=== PATIENT | male | born 1995 | race Caucasian/White ===

== ENCOUNTER 2021-07-22 22:34 | Emergency (ER) | payer OTHER, SELFPAY ==
[2021-07-22 22:45] VITALS: BP 137/86; PULSE 85; RESP 16; TEMP 36.4; O2SAT 96; BMI 34.7
--- NOTE | 2021-07-22 23:24 | ED.BACK ---
HPI - Back Pain/Injury General Chief Complaint: Back Pain/Injury Stated Complaint: SHARP MIDDLE OF BACK PAIN WHEN EATING SEVERE PAIN Time Seen by Provider: 07/22/21 22:58 Source: patient Mode of arrival: Ambulatory Limitations: no limitations History of Present Illness HPI Narrative: Patient is a otherwise healthy 25-year-old male. Over the past 4 days he has had mid back discomfort. He states that during this time he has had a slight discomfort in this area however when he eats something the discomfort worsens. He was evaluated at an outside emergency facility. Was told that it was a muscular issue. Was given symptomatic treatment with medications. Has been taking these medicines and it has not changed. He states that it gets worse every time that he eats. It then improves over the next several minutes to our. Denies any nausea or vomiting. No diarrhea. No constipation. No urinary symptoms. No trauma. No skin rash over the area. No fevers. Over the past 24 hours he has not developed upper abdominal discomfort when he eats. When specifically questioned about the symptoms he does feel that maybe there are 2 issues going on in that he has a underlying back issue and then a separate pain in his back and in his abdomen when he eats. Has never had reflux issues in the past. Related Data Previous Rx's Medication Instructions Recorded sucralfate 1 gram tablet (Carafate) 1 g PO QACHS #60 tab 07/23/21 Allergies Allergy/AdvReac Type Severity Reaction Status Date / Time No Known Drug Allergies Allergy Verified 07/22/21 22:55 Review of Systems Constitutional Constitutional: Reports system reviewed and no additional complaints, except as documented Cardiovascular Cardiovascular: Reports as per HPI and Reports system reviewed and no additional complaints, except as documented Respiratory Respiratory: Reports as per HPI and Reports system reviewed and no additional complaints, except as documented Gastrointestinal Gastrointestinal: Reports as per HPI and Reports system reviewed and no additional complaints, except as documented Genitourinary Genitourinary: Reports system reviewed and no additional complaints, except as documented and Reports as per HPI Musculoskeletal Musculoskeletal: Reports system reviewed and no additional complaints, except as documented and Reports as per HPI Integumentary/Breasts Skin/Breast: Reports system reviewed and no additional complaints, except as documented Hematologic/Lymphatic On Anticoagulants: No Patient History Medical History Healthy adult tobacco type: vaping alcohol intake frequency: 0-2 drinks per day Substance Use Type: does not use Exam Initial Vital Signs Initial Vital Signs: Vital Signs Temperature 97.5 F L 07/22/21 22:45 Pulse Rate 85 07/22/21 22:45 Respiratory Rate 16 07/22/21 22:45 Blood Pressure 137/86 07/22/21 22:45 Pulse Oximetry 96 07/22/21 22:45 HENMT Head: normal to inspection and normocephalic Resp Effort & Inspection: normal respiratory effort Auscultation: clear to auscultation bilaterally Cardio Rate: regular rate Rhythm: regular rhythm GI Inspection: normal to inspection Palpation: soft, No firm and No tender Back/Spine/Pelvis Thoracic/Lumbar Spine: paraspinal tenderness (Midthoracic region) and No lumbar spinal tenderness Skin General: no rashes or lesions noted Neuro General: patient alert, patient awake and moves all extremities Extrem General: normal to inspection and capillary refill normal Psych Appearance: grossly normal and well kempt Course Orders Ordered: ED Orders 07/22/21 23:00 Urine Microscopic Stat 07/22/21 23:25 US abdomen limited Stat 07/22/21 23:35 Complete Blood Count AUTO DIFF Stat Comprehensive Metabolic Panel Stat Lipase Stat 07/23/21 00:37 CT angio abdomen pelvis Stat Vital Signs Vital signs: Vital Signs - 8 hr 07/22/21 22:45 07/23/21 01:43 Temperature 97.5 F L Pulse Rate 85 80 Respiratory Rate 16 16 Blood Pressure 137/86 140/84 Pulse Oximetry 96 97 MDM - Back Pain/Injury Lab Data Attestation: I reviewed the patient's lab results. Result diagrams: 07/22/21 23:35 07/22/21 23:35 Labs: Lab Results 07/22/21 07/22/21 07/22/21 Range/Units 23:00 23:35 23:35 WBC 7.8 (4.5-11.0) X10^3/uL RBC 5.18 (4.5-5.9) X10^6/uL Hgb 15.1 (13.5-17.5) g/dL Hct 44.1 (41-53) % MCV 85.2 (80-100) fL MCH 29.1 (26-34) PG MCHC 34.2 (30-36) % RDW 12.0 (11.6-14.8) % Plt Count 317 (150-400) X10^3/uL Neut % (Auto) 53.8 (50-75) % Lymph % (Auto) 29.9 (25-40) % [place] % (Auto) 15.0 H (3-14) % Eos % (Auto) 0.7 L (2-4) % Baso % (Auto) 0.6 (0-2) % Neut # (Auto) 4200 (0420-2750) /uL Lymph # (Auto) 2300 (6415-1229) /uL [place] # (Auto) 1200 H (0-900) /uL Eos # (Auto) 100 (0-450) /uL Baso # (Auto) 0 (0-100) /uL Sodium 137 (137-145) mmol/L Potassium 3.8 (3.4-5.1) mmol/L Chloride 105 (98-107) mmol/L Carbon Dioxide 29 (22-32) mmol/L BUN 14 (9-20) mg/dL Creatinine 1.00 (0.66-1.25) mg/dL Estimated GFR > 60.0 (>60) mL/min BUN/Creatinine Ratio 14.0 (6-22) Glucose 94 (70-100) mg/dL Calcium 9.1 (8.4-10.2) mg/dL Total Bilirubin 0.7 (0.2-1.3) mg/dL AST 29 (17-59) IU/L ALT 40 (<50) IU/L Alkaline Phosphatase 57 (38-126) U/L Total Protein 7.8 (6.3-8.2) g/dL Albumin 4.2 (3.5-5.0) g/dL Globulin 3.6 (1.7-4.1) g/dL Albumin/Globulin Ratio 1.2 (1.0-2.8) Lipase 52 (23-300) U/L Urine RBC 0-1/hpf (0-5/HPF) Urine WBC None seen (0-5/HPF) Urine Bacteria None seen (None) Urine Mucus 1+ H (Negative) Ur Culture Indicated? Cult not indicated Urine Dip Bedside Urine Glucose Negative Bedside Urine Bilirubin - Negative Bedside Urine Ketone - Negative Urine Specific [place] 1.025 Bedside Urine Occult Blood +/- Bedside Urine pH 6.0 Bedside Urine Protein +/- 15 Bedside Urine Urobilinogen - Negative Bedside Urine Nitrite - Negative Bedside Urine Leukocytes - Negative Esterase Imaging Data US - abdomen: Radiologist's Impression: [address] [address] Ultrasound Report Signed Patient: Pedro Williamson MR#: [id number] : 1995 Acct:[id number] Age/Sex: 25 / M Date of Service: 07/22/21 Loc: ED Accession Number: [id number] ?? Procedure: US abdomen limited Ordering Provider: Abdirahman Carcamo D.O. PROCEDURE:? US ABDOMEN LIMITED ? INDICATIONS:? RUQ PAIN ? TECHNIQUE:? Real-time scanning was performed of the abdominal and retroperitoneal organs, with image documentation.? ? COMPARISON:? None. ? FINDINGS:? ? Liver:? Liver is normal in size and homogeneous in echotexture.? ? Gallbladder:? Gallbladder is normal in sonographic appearance without gallstones, gallbladder wall thickening, pericholecystic fluid, or abnormal sonographic Leslie's.? Gallbladder appears slightly decompressed.? ? Biliary ducts:? Intrahepatic bile ducts are non-dilated.? Extrahepatic bile duct caliber measures 3 mm.? Normal is 6-7 mm or less in diameter, or 10 mm or less post-cholecystectomy.? ? Pancreas:? Pancreas is not well visualized secondary to overlying bowel gas. ? Miscellaneous:? No free abdominal fluid.? ? ? IMPRESSION:? No acute sonographic abnormalities identified in the right upper quadrant to explain patient's symptoms. ? ? ? Dictated by: Manoj Valencia M.D. on 07/23/2021 at 0:20 ? ? Approved by: Manoj Valencia M.D. on 07/23/2021 at 0:21?? CT scan - abdomen/pelvis: Radiologist's Impression: [address] [address] [address] Scan Report Signed Patient: Pedro Williamson MR#: [id number] : 1995 Acct:[id number] Age/Sex: 25 / M Date of Service: 07/23/21 Loc: ED Accession Number: [id number] ?? Procedure: CT angio abdomen pelvis Ordering Provider: Abdirahman Carcamo D.O. PROCEDURE:? CT ANGIO ABDOMEN PELVIS ? INDICATIONS:? Epigastric pain with eating ? TECHNIQUE:? After the administration of intravenous contrast, 2.5 mm thick sections acquired from the diaphragm to the symphysis.? 10 mm maximum-intensity projection (MIP) reformats were then acquired.? For radiation dose reduction, the following was used:? automated exposure control.? ? COMPARISON:? None. ? FINDINGS:? Image quality:? Excellent.? ? Aorta:? The aorta is normal in size and appearance. No evidence for dissection or aneurysmal dilatation. ? Mesenteric arteries:? Celiac trunk, superior and inferior mesenteric arteries appear patent.? ? Right pelvic arteries:? widely patent ? Left pelvic arteries:? widely patent. ? Extravascular soft tissues:? Lung bases are clear.? Heart size is normal.? Liver is normal in size and enhancement.? Gallbladder is unremarkable.? Biliary system is non dilated.? Pancreas enhances normally. No peripancreatic stranding.? Spleen is normal in size and enhancement.? No adrenal nodules.? Kidneys are normal in size and enhancement, without hydronephrosis.? Non opacified bowel loops are normal in wall thickness and caliber.? No free fluid or air.? No retroperitoneal or mesenteric adenopathy.? No ventral hernias.? No suspicious bony lesions.? No vertebral body compression fractures.? ? IMPRESSION:? Negative CT angiogram of the abdomen and pelvis. Normal appearance of mesenteric vasculature. No evidence for mesenteric ischemia. No acute abnormalities seen. ? ? Dictated by: Manoj Valencia M.D. on 07/23/2021 at 1:12 ? ? Approved by: Manoj Valencia M.D. on 07/23/2021 at 1:18 MDM Narrative Medical decision making narrative: Labs are unremarkable. Physical exam is unremarkable. His severe discomfort occurs whenever he eats. This is with solid foods and not with liquid. I initially had concern for gallbladder pathology however his liver enzymes in his right upper quadrant ultrasound are unremarkable. Considered other etiologies such as gastric/duodenal ulcer. Other etiologies to include mesenteric ischemia/nutcracker syndrome etc. discussed options with the patient to include holding on further workup verses obtaining a CT scan for further evaluation. Patient opted for CT scan. This was subsequently unremarkable as well. Unsure the exact etiology of the patient's symptoms. This could potentially be ulcers. Will start on Carafate. He understands that or not 100% convinced of this diagnosis. He understands that if the symptoms do not improved despite the Carafate that he should contact his medical department about further workup and discussed the indications for referral to see Gastroenterology. He was given return precautions. He expressed understanding and agreement. Discharge Plan Departure Patient Disposition: Home Clinical Impression: Abdominal pain Instructions: DI for Abdominal Pain-Adult Activity Restrictions/Additional Instructions: I recommend that you keep all of your scheduled appointments and [place] Take the Carafate as directed. Return to the emergency department for any new or worsening symptoms. Prescriptions: New sucralfate [Carafate] 1 gram tablet 1 g PO QACHS Qty: 60 2RF
--- NOTE | 2021-07-22 23:25 | DI.US.S_ITS ---
PROCEDURE: US ABDOMEN LIMITED INDICATIONS: RUQ PAIN TECHNIQUE: Real-time scanning was performed of the abdominal and retroperitoneal organs, with image documentation. COMPARISON: None. FINDINGS: Liver: Liver is normal in size and homogeneous in echotexture. Gallbladder: Gallbladder is normal in sonographic appearance without gallstones, gallbladder wall thickening, pericholecystic fluid, or abnormal sonographic Leslie's. Gallbladder appears slightly decompressed. Biliary ducts: Intrahepatic bile ducts are non-dilated. Extrahepatic bile duct caliber measures 3 mm. Normal is 6-7 mm or less in diameter, or 10 mm or less post-cholecystectomy. Pancreas: Pancreas is not well visualized secondary to overlying bowel gas. Miscellaneous: No free abdominal fluid. IMPRESSION: No acute sonographic abnormalities identified in the right upper quadrant to explain patient's symptoms. Dictated by: Manoj Valencia M.D. on 07/23/2021 at 0:20 Approved by: Manoj Valencia M.D. on 07/23/2021 at 0:21
[2021-07-22 23:44] LABS: RBC Urine 0-1/HPF (0-5/HPF); WBC Urine None Seen (0-5/HPF)
[2021-07-22 23:45] LABS: Bacteria Urine None Seen; Culture Indicated Urine Cult Not Indicated; Mucus Urine 1+ (Negative)
[2021-07-22 23:46] LABS: Add Manual Diff / Slide Review NO; Basophils Absolute Auto 0 /uL (0-100); Basophils Percent Auto 0.6 % (0-2); Eosinophils Absolute Auto 100 /uL (0-450); Eosinophils Percent Auto 0.7 % (2-4); Hematocrit 44.1 % (41-53); Hemoglobin 15.1 g/dL (13.5-17.5); Lymphocytes Absolute Auto 2300 /uL (1100-4500); Lymphocytes Percent Auto 29.9 % (25-40); Mean Corpuscular HGB Conc 34.2 % (30-36); Mean Corpuscular Hemoglobin 29.1 PG (26-34); Mean Corpuscular Volume 85.2 fL (80-100); Monocytes Absolute Auto 1200 /uL (0-900); Neutrophils Absolute Auto 4200 /uL (1500-7000); Neutrophils Percent Auto 53.8 % (50-75); Platelet Count 317 X10^3/uL (150-400); Red Blood Cell Count 5.18 X10^6/uL (4.5-5.9); White Blood Cell Count 7.8 X10^3/uL (4.5-11.0)
[2021-07-22 23:55] LABS: Alanine Aminotransferase 40 IU/L (<50); Albumin 4.2 g/dL (3.5-5.0); Albumin Globulin Ratio 1.2 (1.0-2.8); Alkaline Phosphatase 57 U/L (38-126); Aspartate Aminotransferase 29 IU/L (17-59); Bilirubin Total 0.7 mg/dL (0.2-1.3); Blood Urea Nitrogen 14 mg/dL (9-20); Calcium 9.1 mg/dL (8.4-10.2); Carbon Dioxide 29 mmol/L (22-32); Chloride 105 mmol/L (98-107); Estimated Glomerular Filt Rate > 60.0 mL/min (>60); Globulin 3.6 g/dL (1.7-4.1); Glucose 94 mg/dL (70-100); HEMOLYSIS < 15 (0-50); Lipase 52 U/L (23-300); Potassium 3.8 mmol/L (3.4-5.1); Sodium 137 mmol/L (137-145); Total Protein 7.8 g/dL (6.3-8.2)
--- NOTE | 2021-07-23 00:37 | DI.CT.S_ITS ---
PROCEDURE: CT ANGIO ABDOMEN PELVIS INDICATIONS: Epigastric pain with eating TECHNIQUE: After the administration of intravenous contrast, 2.5 mm thick sections acquired from the diaphragm to the symphysis. 10 mm maximum-intensity projection (MIP) reformats were then acquired. For radiation dose reduction, the following was used: automated exposure control. COMPARISON: None. FINDINGS: Image quality: Excellent. Aorta: The aorta is normal in size and appearance. No evidence for dissection or aneurysmal dilatation. Mesenteric arteries: Celiac trunk, superior and inferior mesenteric arteries appear patent. Right pelvic arteries: widely patent Left pelvic arteries: widely patent. Extravascular soft tissues: Lung bases are clear. Heart size is normal. Liver is normal in size and enhancement. Gallbladder is unremarkable. Biliary system is non dilated. Pancreas enhances normally. No peripancreatic stranding. Spleen is normal in size and enhancement. No adrenal nodules. Kidneys are normal in size and enhancement, without hydronephrosis. Non opacified bowel loops are normal in wall thickness and caliber. No free fluid or air. No retroperitoneal or mesenteric adenopathy. No ventral hernias. No suspicious bony lesions. No vertebral body compression fractures. IMPRESSION: Negative CT angiogram of the abdomen and pelvis. Normal appearance of mesenteric vasculature. No evidence for mesenteric ischemia. No acute abnormalities seen. Dictated by: Manoj Valencia M.D. on 07/23/2021 at 1:12 Approved by: Manoj Valencia M.D. on 07/23/2021 at 1:18
[2021-07-23 01:43] VITALS: BP 140/84; PULSE 80; RESP 16; O2SAT 97
== END 2021-07-23 01:44 | disposition home or self-care (01) ==
PROVIDERS: Emergency Provider Emergency Medicine
DX: R10.10 Upper abdominal pain, unspecified (principal); M54.6 Pain in thoracic spine
CPT/HCPCS: 36415; 74174; 76705; 80053; 81003; 81015; 83690; 85025; 99283; 99284; Q9967

== ENCOUNTER 2021-08-09 14:39 | Emergency (ER) | payer OTHER, SELFPAY ==
[2021-08-09] VITALS (8 sets, daily range): BP systolic 125–138; BP diastolic 62–85; PULSE 57–87; RESP 16–18; TEMP 37.1; O2SAT 96–99; BMI 33.5
[2021-08-09 15:13] LABS: Add Manual Diff / Slide Review NO; Basophils Absolute Auto 100 /uL (0-100); Basophils Percent Auto 0.7 % (0-2); Eosinophils Absolute Auto 100 /uL (0-450); Eosinophils Percent Auto 1.9 % (2-4); Hematocrit 43.5 % (41-53); Lymphocytes Absolute Auto 2300 /uL (1100-4500); Lymphocytes Percent Auto 32.4 % (25-40); Mean Corpuscular HGB Conc 34.4 % (30-36); Mean Corpuscular Hemoglobin 29.2 PG (26-34); Mean Corpuscular Volume 84.8 fL (80-100); Monocytes Absolute Auto 800 /uL (0-900); Monocytes Percent Auto 10.9 % (3-14); Neutrophils Absolute Auto 3800 /uL (1500-7000); Neutrophils Percent Auto 54.1 % (50-75); Platelet Count 390 X10^3/uL (150-400); Red Blood Cell Count 5.14 X10^6/uL (4.5-5.9); Red Cell Distribution Width 11.9 % (11.6-14.8); White Blood Cell Count 7.1 X10^3/uL (4.5-11.0)
[2021-08-09 15:29] LABS: Alanine Aminotransferase 39 IU/L (<50); Albumin 4.3 g/dL (3.5-5.0); Albumin Globulin Ratio 1.3 (1.0-2.8); Alkaline Phosphatase 61 U/L (38-126); Aspartate Aminotransferase 54 IU/L (17-59); BUN Creatinine Ratio 17.1 (6-22); Bilirubin Total 0.6 mg/dL (0.2-1.3); Blood Urea Nitrogen 14 mg/dL (9-20); Calcium 9.4 mg/dL (8.4-10.2); Carbon Dioxide 25 mmol/L (22-32); Chloride 107 mmol/L (98-107); Estimated Glomerular Filt Rate > 60.0 mL/min (>60); Globulin 3.2 g/dL (1.7-4.1); Glucose 97 mg/dL (70-100); HEMOLYSIS < 15 (0-50); Potassium 4.4 mmol/L (3.4-5.1); Sodium 139 mmol/L (137-145); Total Protein 7.5 g/dL (6.3-8.2)
--- NOTE | 2021-08-09 15:33 | ED_ITS ---
HPI - GI Bleed General Chief complaint: GI Bleed Stated complaint: ulcers; throwing up blood and bloody stool Time Seen by Provider: 08/09/21 14:57 Source: patient Mode of arrival: Ambulatory Limitations: no limitations History of Present Illness HPI Narrative: The patient has experienced intermittent vomiting over the last 4 days. He has occasional small amounts of blood with the vomiting. He says he is vomiting every time he eats. He has no bloody diarrhea. He was seen here approximately 2.5 weeks ago. Intermittent nausea vomiting started about 1 month ago. Was diagnosed with PUD and started on omeprazole. Right upper quadrant ultrasound was normal. Abdomen/pelvis CT was normal at that time. He denies headache, sore throat, for chest pain. His no cough or dyspnea. He has no abdominal pain at this time. He denies back pain. His no urinary complaints. He does smoke tobacco. He drinks small to moderate amounts of alcohol on weekends only. He has no history of chronic illnesses, prior to onset of current symptoms. Related Data Previous Rx's Medication Instructions Recorded sucralfate 1 gram tablet (Carafate) 1 g PO QACHS #60 tab 07/23/21 metoclopramide HCl 10 mg tablet 10 mg PO Q6H #60 tab 08/09/21 (Reglan) metoclopramide HCl 10 mg tablet 10 mg PO Q6H #60 tab 08/09/21 (Reglan) Allergies Allergy/AdvReac Type Severity Reaction Status Date / Time No Known Drug Allergies Allergy Verified 07/22/21 22:55 Review of Systems Constitutional Constitutional: Reports system reviewed and no additional complaints, except as documented ENT Ears, Nose, Mouth, and Throat: Denies vertigo and Denies dizziness Cardiovascular Cardiovascular: Denies chest pain, Denies rapid heart rate and Denies dyspnea Respiratory Respiratory: Denies cough and Denies dyspnea Gastrointestinal Gastrointestinal: Reports as per HPI Genitourinary Genitourinary: Denies dysuria, Denies testicular pain and Denies urinary frequency Musculoskeletal Musculoskeletal: Denies back pain Integumentary/Breasts Skin/Breast: Denies lesions and Denies rash Neurologic Neurologic: Denies confusion, Denies vertigo and Denies dizziness Psychiatric Psychiatric: Denies confusion Hematologic/Lymphatic On Anticoagulants: No Patient History Medical History (Updated 08/09/21 @ 18:41 by Hernan Velez MD) Healthy adult PUD (peptic ulcer disease) Social History Smoking Status: Current every day smoker Smoking Status: Current every day smoker tobacco type: vaping alcohol intake frequency: a few times a week Substance Use Type: does not use Exam Initial Vital Signs Initial Vital Signs: Vital Signs Temperature 98.7 F 08/09/21 14:45 Pulse Rate 87 08/09/21 14:45 Respiratory Rate 16 08/09/21 14:45 Blood Pressure 131/71 08/09/21 14:45 Pulse Oximetry 98 08/09/21 14:45 Const General: cooperative, healthy appearing and comfortable [facility] Head: normal to inspection, normocephalic and atraumatic Mouth: oral mucosae normal Neck Neck: normal visual inspection and full ROM Resp Effort & Inspection: normal respiratory effort Auscultation: clear to auscultation bilaterally Cardio Rate: regular rate Rhythm: regular rhythm Heart Sounds: S1 normal, S2 normal, no click, no gallops and no murmurs GI Inspection: normal to inspection Palpation: soft, No guarding, No mass and No tender Auscultation: normal bowel sounds Back/Spine/Pelvis Back: No CVA tenderness Skin General: no rashes or lesions noted Neuro General: patient alert, patient awake, patient oriented x3 and no focal motor deficits Extrem General: normal to inspection, no pedal edema and no calf tenderness Course Course Course Narrative: His H/H is stable. Nausea has been alleviated with Zofran. Protonix was given. 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 He will be discharged on Reglan in addition to the Omeprazole he is already taking. Orders Ordered: ED Orders 08/09/21 14:52 EKG-12 Lead Stat 08/09/21 15:05 Complete Blood Count AUTO DIFF Stat Comprehensive Metabolic Panel Stat 08/09/21 15:49 COVID19 -Nasal swab/Pre-Proc Stat 08/09/21 18:00 Urine Culture Stat Urine Microscopic Stat Discontinued Medications Ondansetron HCl (Ondansetron 4 Mg/2 Ml Inj) 4 mg IV NOW ONE Stop: 08/09/21 15:32 Last Admin: 08/09/21 15:39 Dose: 4 mg Documented by: ALE Pantoprazole Sodium (Pantoprazole 40 Mg Vial) 40 mg IV NOW ONE Stop: 08/09/21 15:10 Last Admin: 08/09/21 15:40 Dose: 40 mg Documented by: ALE Vital Signs Vital signs: Vital Signs - 8 hr 08/09/21 14:45 08/09/21 15:13 08/09/21 15:30 Temperature 98.7 F Pulse Rate 87 86 76 Respiratory Rate 16 18 Blood Pressure 131/71 127/62 Pulse Oximetry 98 97 97 08/09/21 16:00 08/09/21 16:30 08/09/21 17:00 Temperature Pulse Rate 80 64 59 L Respiratory Rate 18 Blood Pressure 130/73 125/62 130/68 Pulse Oximetry 96 97 96 08/09/21 17:30 Temperature Pulse Rate 57 L Respiratory Rate Blood Pressure 138/85 Pulse Oximetry 97 MDM - GI Bleed Lab Data Result diagrams: 08/09/21 15:05 08/09/21 15:05 Labs: Lab Results 08/09/21 08/09/21 08/09/21 Range/Units 15:05 15:05 15:49 WBC 7.1 (4.5-11.0) X10^3/uL RBC 5.14 (4.5-5.9) X10^6/uL Hgb 15.0 (13.5-17.5) g/dL Hct 43.5 (41-53) % MCV 84.8 (80-100) fL MCH 29.2 (26-34) PG MCHC 34.4 (30-36) % RDW 11.9 (11.6-14.8) % Plt Count 390 (150-400) X10^3/uL Neut % (Auto) 54.1 (50-75) % Lymph % (Auto) 32.4 (25-40) % [place] % (Auto) 10.9 (3-14) % Eos % (Auto) 1.9 L (2-4) % Baso % (Auto) 0.7 (0-2) % Neut # (Auto) 3800 (4255-1357) /uL Lymph # (Auto) 2300 (7692-0611) /uL [place] # (Auto) 800 (0-900) /uL Eos # (Auto) 100 (0-450) /uL Baso # (Auto) 100 (0-100) /uL Sodium 139 (137-145) mmol/L Potassium 4.4 (3.4-5.1) mmol/L Chloride 107 (98-107) mmol/L Carbon Dioxide 25 (22-32) mmol/L BUN 14 (9-20) mg/dL Creatinine 0.82 (0.66-1.25) mg/dL Estimated GFR > 60.0 (>60) mL/min BUN/Creatinine Ratio 17.1 (6-22) Glucose 97 (70-100) mg/dL Calcium 9.4 (8.4-10.2) mg/dL Total Bilirubin 0.6 (0.2-1.3) mg/dL AST 54 (17-59) IU/L ALT 39 (<50) IU/L Alkaline Phosphatase 61 (38-126) U/L Total Protein 7.5 (6.3-8.2) g/dL Albumin 4.3 (3.5-5.0) g/dL Globulin 3.2 (1.7-4.1) g/dL Albumin/Globulin Ratio 1.3 (1.0-2.8) SARS-CoV-2 (PCR) Negative (Negative) Urine Dip Bedside Urine Glucose Negative Bedside Urine Bilirubin - Negative Bedside Urine Ketone - Negative Urine Specific [place] 1.025 Bedside Urine Occult Blood +/- Bedside Urine pH 6 Bedside Urine Protein - Negative Bedside Urine Urobilinogen - Negative Bedside Urine Nitrite - Negative Bedside Urine Leukocytes - Negative Esterase ECG Data Attestation: I personally reviewed and interpreted this ECG as follows: (Normal sinus rhythm rate 77 beats per minute. Normal intervals. No ectopy. No acute ST T wave changes.) Discharge Plan Departure Patient Disposition: Home Clinical Impression: Recurrent vomiting, PUD (peptic ulcer disease) Instructions: Peptic Ulcer, DI for Vomiting -- Adult Activity Restrictions/Additional Instructions: Continue omeprazole as prescribed. Reglan every 6 hours for nausea. [place] diet, drink plenty of water. Follow-up with your doctor. I would suggest GI consultation and/or EGD. Prescriptions: New metoclopramide HCl [Reglan] 10 mg tablet 10 mg PO Q6H Qty: 60 0RF metoclopramide HCl [Reglan] 10 mg tablet 10 mg PO Q6H Qty: 60 0RF No Action sucralfate [Carafate] 1 gram tablet 1 g PO QACHS Qty: 60 2RF
[2021-08-09] MEDS: ONDANSETRON 4 MG/2 ML INJ IV (15:39)
[2021-08-09] MEDS: PANTOPRAZOLE 40 MG VIAL IV (15:40)
[2021-08-09 16:41] LABS: COVID19 -Nasal RAPID Negative (Negative)
[2021-08-09 18:44] LABS: Bacteria Urine None Seen; Culture Indicated Urine Cult Not Indicated; Mucus Urine 2+ (Negative); RBC Urine 1-5/HPF (0-5/HPF); Squamous Epithelial Cell Urine 0-1 /HPF (0-5/HPF); WBC Urine 0-1/HPF (0-5/HPF)
== END 2021-08-09 19:00 | disposition home or self-care (01) ==
PROVIDERS: Emergency Provider Emergency Medicine
DX: R11.10 Vomiting, unspecified (principal); K27.9 Peptic ulcer, site unspecified, unspecified as acute or chronic, without hemorrhage or perforation; F17.290 Nicotine dependence, other tobacco product, uncomplicated; Z20.822 Contact with and (suspected) exposure to COVID-19
CPT/HCPCS: 36415; 80053; 81003; 81015; 85025; 87086; 87635; 93005; 96374; 96375; 99284; C9803; C9113; J2405

== ENCOUNTER 2021-08-15 22:03 | Emergency (ER) | payer OTHER, SELFPAY ==
[2021-08-15 22:10] VITALS: BP 125/74; PULSE 105; RESP 18; TEMP 36.6; O2SAT 99
--- NOTE | 2021-08-15 22:14 | DI.RAD.S_ITS ---
PROCEDURE: XR ANKLE RT MIN 3V INDICATIONS: pain and swelling after injury TECHNIQUE: 3 views of the ankle were acquired. COMPARISON: None. FINDINGS: Bones: No fractures or dislocations. Ankle mortise is normally aligned. No suspicious bony lesions. Soft tissues: No tibiotalar joint effusion. Achilles tendon appears normal. IMPRESSION: No visualized acute fracture or dislocation. However, if clinical concern and/or pain persist, short interval imaging followup in 7-10 days is recommended, as occult injury cannot be definitively excluded. Dictated by: Daisha Beckham M.D. on 08/15/2021 at 22:44 Approved by: Daisha Beckham M.D. on 08/15/2021 at 22:45
--- NOTE | 2021-08-15 22:49 | ED_ITS ---
HPI - Extremity Injury (Lower) General Chief Complaint: Extremity Injury, Lower Stated Complaint: rt ankle ankle Time Seen by Provider: 08/15/21 22:49 Source: patient Mode of arrival: Wheelchair History of Present Illness HPI Narrative: Patient is a 25-year-old male history of ulcers presenting today after injury of his pre foot and ankle. He got stuck between off trailer and generator his foot bent sideways and under and was getting S doc. He initially was able to ambulate however as time has gone on he actually has more swelling in his medial foot and quite tender to touch. No numbness tingling no knee pain or injury. Related Data Previous Rx's Medication Instructions Recorded sucralfate 1 gram tablet (Carafate) 1 g PO QACHS #60 tab 07/23/21 metoclopramide HCl 10 mg tablet 10 mg PO Q6H #60 tab 08/09/21 (Reglan) metoclopramide HCl 10 mg tablet 10 mg PO Q6H #60 tab 08/09/21 (Reglan) hydrocodone 5 mg-acetaminophen 325 1 tab PO Q6H PRN #10 tab 08/15/21 mg tablet Allergies Allergy/AdvReac Type Severity Reaction Status Date / Time No Known Drug Allergies Allergy Verified 07/22/21 22:55 Review of Systems Review of Systems Narrative: GENERAL: Denies chills,fever HEENT: Denies throat pain RESPIRATORY: Denies dyspnea, cough, wheezing CARDIOVASCULAR: Denies chest pain, palpitations GASTROINTESTINAL: Denies nausea, vomiting MUSCULOSKELETAL: See HPI SKIN: No rash, no laceration, no pruritus NEUROLOGIC: Denies weakness, dizziness, headache, numbness 8 point review of systems is negative except for those stated above and HPI Patient History Medical History (Updated 08/15/21 @ 23:38 by Celeste Samson DO) Healthy adult PUD (peptic ulcer disease) Social History Smoking Status: Current every day smoker Smoking Status: Current every day smoker tobacco type: vaping alcohol intake frequency: a few times a week Substance Use Type: does not use Exam Initial Vital Signs Initial Vital Signs: Vital Signs Temperature 97.9 F 08/15/21 22:10 Pulse Rate 105 H 08/15/21 22:10 Respiratory Rate 18 08/15/21 22:10 Blood Pressure 125/74 08/15/21 22:10 Pulse Oximetry 99 08/15/21 22:10 GENERAL: Well-appearing, well-nourished and in no acute distress. CARDIOVASCULAR: peripheral pulses in tact, cap refill <2 sec RESPIRATORY: No respiratory distress, speaks in full sentences without difficulty EXTREMITIES: Normal range of motion, no clubbing or edema. Neurovascularly intact Right lower ex: Knees within normal limits ankle mildly swelling foot is nontender with medial is foot swelling. Able to is resist big toe against some distal pedal pulse intact. NEUROLOGICAL: Cranial nerves II through XII grossly intact. Normal gait and speech. SKIN: Warm, dry, no petechiae, no rashes or lesions. Course Orders Ordered: ED Orders 08/15/21 22:14 XR ankle RT min 3V Stat 08/15/21 22:56 XR foot RT min 3V Stat Discontinued Medications Hydrocodone Bitart/Acetaminophen (Hydrocodone/Acet 5/325 Prepack) 1 bottle MISC SEEINSTR ONE Stop: 08/15/21 23:41 Last Admin: 08/15/21 23:56 Dose: 1 bottle Documented by: ABRIL Ketorolac Tromethamine (Ketorolac 30 Mg/Ml Vial) 30 mg IM NOW ONE Stop: 08/15/21 22:57 Last Admin: 08/15/21 23:09 Dose: 30 mg Documented by: ABRIL Vital Signs Vital signs: Vital Signs - 8 hr 08/15/21 22:10 08/15/21 23:59 Temperature 97.9 F Pulse Rate 105 H Respiratory Rate 18 Blood Pressure 125/74 117/70 Pulse Oximetry 99 MDM - Extremity Injury (Lower) Imaging Data Extremity x-ray #1: Radiologist's Impression: PROCEDURE:? XR ANKLE RT MIN 3V ? INDICATIONS:? pain and swelling after injury ? TECHNIQUE:? 3 views of the ankle were acquired.? ? COMPARISON:? None. ? FINDINGS:? ? Bones:? No fractures or dislocations.? Ankle mortise is normally aligned.? No suspicious bony lesions.? ? Soft tissues:? No tibiotalar joint effusion.? Achilles tendon appears normal.? ? ? IMPRESSION:? No visualized acute fracture or dislocation. However, if clinical concern and/or pain persist, short interval imaging followup in 7-10 days is recommended, as occult injury cannot be definitively excluded. ? Dictated by: Daisha Beckham M.D. on 08/15/2021 at 22:44 ? ? Approved by: Daisha Beckham M.D. on 08/15/2021 at 22:45 ? Extremity x-ray #2: Radiologist's Impression: PROCEDURE:? XR FOOT RT MIN 3V ? INDICATIONS:? pain medial swelling injury ? TECHNIQUE:? 3 views of the foot were acquired.? ? COMPARISON:? Located Within [facility], CR, XR ANKLE RT MIN 3V, 08/15/2021, 22:06. ? FINDINGS:? ? Bones:? No fractures or dislocations.? No suspicious bony lesions.? ? Soft tissues:? No tibiotalar joint effusion.? Achilles tendon appears normal.? ? ? IMPRESSION:? No visualized acute fracture or dislocation. However, if clinical concern and/or pain persist, short interval imaging followup in 7-10 days is gertrude mmended, as occult injury cannot be definitively excluded. ? ? Dictated by: Daisha Beckham M.D. on 08/15/2021 at 23:08 ? ? MDM Narrative Medical decision making narrative: The patient does have significant swelling on foot, both x-rays are negative. Unable to bear weight he is given crutches. If he is still having increased more intense pain may need repeat x-rays or CT. He was able to ambulate initially. He is given 1 dose of Toradol in the ED to help with inflammation however based on his history of peptic ulcers on do not recommend continue with ibuprofen. He is given hydrocodone. Discharge Plan Departure Patient Disposition: Home Clinical Impression: Foot sprain Activity Restrictions/Additional Instructions: *You have been diagnosed with ankle and foot sprain *What to do: At this time use crutches as needed. Elevate and ice 20 minutes at a time. May need repeat x-rays if still unable to walk in 7 to 10 days *Continue to take medications as directed [place] 1 tablet every 6 hours if needed for severe pain -avoid ibuprofen(and all NSAIDS, leave, naproxen, Advil etc) with history of ulcers *Follow up with your primary care provider in 2-3 days or call [phone] *Return to ER if you should have increasing pain swelling, or any new, worsening or concerning symptoms CONTROLLED SUBSTANCE DISCHARGE (Narcotoic/benzodiazepine/Flexeril/Phenergan) 1. You have been prescribed narcotic medications, it does have acetaminophen/Tylenol/paracetamol in it, DO NOT TAKE MORE THAN 4,00mg in 24 hours of Tylenol. TRAMADOL DOES NOT CONTAIN TYLENOL 2. Please understand that we cannot provide further refills of narcotics, benzodiazepines or controlled substances through the ED and her pain management will need to be through your provider. 3. While on these medications you cannot drive or operate heavy machinery. 4. You cannot sign legal documents or perform any duties such as this. 5. As long as you're taking opiate pain medications he should also be taking a stool softener such as Colace, Dulcolax, MiraLAX or prune juice, to help avoid constipation. Prescriptions: New hydrocodone-acetaminophen 5-325 mg tablet 1 tab PO Q6H PRN (Reason: pain) Qty: 10 0RF No Action sucralfate [Carafate] 1 gram tablet 1 g PO QACHS Qty: 60 2RF metoclopramide HCl [Reglan] 10 mg tablet 10 mg PO Q6H Qty: 60 0RF metoclopramide HCl [Reglan] 10 mg tablet 10 mg PO Q6H Qty: 60 0RF Referrals: [facility] [Provider Group]
--- NOTE | 2021-08-15 22:56 | DI.RAD.S_ITS ---
PROCEDURE: XR FOOT RT MIN 3V INDICATIONS: pain medial swelling injury TECHNIQUE: 3 views of the foot were acquired. COMPARISON: [facility], CR, XR ANKLE RT MIN 3V, 08/15/2021, 22:06. FINDINGS: Bones: No fractures or dislocations. No suspicious bony lesions. Soft tissues: No tibiotalar joint effusion. Achilles tendon appears normal. IMPRESSION: No visualized acute fracture or dislocation. However, if clinical concern and/or pain persist, short interval imaging followup in 7-10 days is recommended, as occult injury cannot be definitively excluded. Dictated by: Daisha Beckham M.D. on 08/15/2021 at 23:08 Approved by: Daisha Beckham M.D. on 08/15/2021 at 23:09
[2021-08-15] MEDS: KETOROLAC 30 MG/ML VIAL IM (23:09)
[2021-08-15] MEDS: HYDROCODONE/ACET 5/325 PREPACK 1 BOTTLE MISC (23:56)
[2021-08-15 23:59] VITALS: BP 117/70
== END 2021-08-16 00:03 | disposition home or self-care (01) ==
PROVIDERS: Emergency Provider Emergency Medicine
DX: S93.601A Unspecified sprain of right foot, initial encounter (principal); F17.290 Nicotine dependence, other tobacco product, uncomplicated; X58.XXXA Exposure to other specified factors, initial encounter
CPT/HCPCS: 73610; 73630; 96372; 99283; 99284; J1885

== ENCOUNTER 2021-09-11 21:07 | Emergency (ER) | payer OTHER, SELFPAY ==
[2021-09-11 21:16] VITALS: BP 129/75; PULSE 100; RESP 18; TEMP 36.6; O2SAT 97
--- NOTE | 2021-09-11 23:50 | DI.CT.S_ITS ---
PROCEDURE: CT LE RT WO CON INDICATIONS: Right foot pain after trauma TECHNIQUE: Noncontrast 1-1.5 mm axial sections acquired from above the tibiotalar joint to the bottom of the calcaneus, with coronal and sagittal reformats. COMPARISON: [facility], CR, XR ANKLE RT MIN 3V, 08/15/2021, 22:06. [facility], CR, XR FOOT RT MIN 3V, 08/15/2021, 22:49. FINDINGS: Image quality: Excellent. Bones: No fracture nor malalignment. Soft tissues: Soft tissues are grossly unremarkable. IMPRESSION: No fracture. Dictated by: Maxine Carney M.D. on 09/12/2021 at 0:34 Approved by: Maxine Carney M.D. on 09/12/2021 at 0:35
--- NOTE | 2021-09-11 23:51 | ED_ITS ---
HPI - Extremity Injury (Lower) General Chief Complaint: Extremity Injury, Lower Stated Complaint: rt foot swelling, toes turning colors Time Seen by Provider: 09/11/21 23:42 Source: patient Mode of arrival: Ambulatory History of Present Illness HPI Narrative: The patient here with family. Here for right foot pain that has not improved since being seen here August 15, 2021. Work related injury. Patient is with the . Has not had referral to Orthopedics or Podiatry. Still not able bear weight. Noticed bluish discoloration to the right toe tonight. That has resolved. Pain is the medial foot that radiates to the small toe. Related Data Previous Rx's Medication Instructions Recorded sucralfate 1 gram tablet (Carafate) 1 g PO QACHS #60 tab 07/23/21 metoclopramide HCl 10 mg tablet 10 mg PO Q6H #60 tab 08/09/21 (Reglan) metoclopramide HCl 10 mg tablet 10 mg PO Q6H #60 tab 08/09/21 (Reglan) hydrocodone 5 mg-acetaminophen 325 1 tab PO Q6H PRN #10 tab 08/15/21 mg tablet Allergies Allergy/AdvReac Type Severity Reaction Status Date / Time No Known Drug Allergies Allergy Verified 07/22/21 22:55 Review of Systems Review of Systems Narrative: GENERAL: Denies chills, fatigue, malaise, fever, sweats. HEENT: Denies sinus pain, ear pain, sore throat RESPIRATORY: Denies dyspnea, cough CARDIOVASCULAR: Denies chest pain, palpitations GASTROINTESTINAL: Denies nausea, vomiting, abdominal pain : Denies dysuria, frequency, hematuria MUSCULOSKELETAL: Positive for muscle or bony pain SKIN: Denies rash, skin lesions NEUROLOGIC: Denies weakness, numbness ROS Unobtainable: All systems reviewed & are unremarkable except as noted in HPI and below Patient History Medical History Healthy adult PUD (peptic ulcer disease) Social History Smoking Status: Current every day smoker Smoking Status: Current every day smoker tobacco type: vaping alcohol intake frequency: a few times a week Substance Use Type: does not use Exam Narrative Exam Narrative: GENERAL: in no distress, not toxic not dyspneic HEAD: Normocephalic. EYES: Pupils equal round No scleral icterus. EXTREMITIES: No gross deformities. Right foot and ankle no gross deformity. Nontender ankle able flex extend. Limited movement of great toe due to pain at the medial surface of the foot. Foot is warm soft and pink. Strong pedal pulse. Light touch intact to foot and remaining toes. No cyanosis. No ecchymosis. Skin is intact. There is tenderness to the dorsum of the foot and medial aspect of the foot as well. NEURO: AOx4. SKIN: Warm and dry PSYCH: Not anxious, is cooperative Initial Vital Signs Initial Vital Signs: Vital Signs Temperature 98 F 09/11/21 21:16 Pulse Rate 100 H 09/11/21 21:16 Respiratory Rate 18 09/11/21 21:16 Blood Pressure 129/75 09/11/21 21:16 Pulse Oximetry 97 09/11/21 21:16 Course Orders Ordered: ED Orders 09/11/21 23:50 CT LE RT wo con Stat Vital Signs Vital signs: Vital Signs - 8 hr 09/11/21 21:16 09/12/21 00:34 Temperature 98 F Pulse Rate 100 H 75 Respiratory Rate 18 18 Blood Pressure 129/75 129/76 Pulse Oximetry 97 100 MDM - Extremity Injury (Lower) Differential Diagnosis Differential diagnosis: Likely ankle sprain and strain, ankle fracture and other (Foot spine range/foot fracture) Imaging Data Extremity x-ray #1: Radiologist's Impression: [address] [address] [address] Scan Report Signed Patient: Pedro Williamson MR#: [id number] : 1995 Acct:[id number] Age/Sex: 26 / M Date of Service: 09/11/21 Loc: ED Accession Number: [id number] ?? Procedure: CT LE RT wo con Ordering Provider: Ramakrishna Ruff MD PROCEDURE:? CT LE RT WO CON ? INDICATIONS:? Right foot pain after trauma ? TECHNIQUE:? Noncontrast 1-1.5 mm axial sections acquired from above the tibiotalar joint to the bottom of the calcaneus, with coronal and sagittal reformats.? ? COMPARISON:? [facility], CR, XR ANKLE RT MIN 3V, 08/15/2021, 22:06.? [facility], CR, XR FOOT RT MIN 3V, 08/15/2021, 22:49. ? FINDINGS:? Image quality:? Excellent.? ? Bones:? No fracture nor malalignment. ? Soft tissues:? Soft tissues are grossly unremarkable. ? IMPRESSION:? No fracture. ? ? Dictated by: Maxine Carney M.D. on 09/12/2021 at 0:34 ? ? Approved by: Maxine Carney M.D. on 09/12/2021 at 0:35 ? MDM Narrative Medical decision making narrative: Appropriate for discharge home. Patient will need follow-up with orthopedics on outpatient MRI. Possible ligamentous/tendon injury. Discharge Plan Departure Patient Disposition: Home Clinical Impression: Foot sprain Instructions: DI for Foot Pain Activity Restrictions/Additional Instructions: Continue foot splint/brace and crutches until office time. Call provided orthopedic office tomorrow to make appointment within a week. Return if worsening questions or concerns. Be sure to elevate your foot when at rest. Recommend doing this every 2 hours for 20 minutes at a time. Return if worse or if any questions or concerns Prescriptions: No Action sucralfate [Carafate] 1 gram tablet 1 g PO QACHS Qty: 60 2RF metoclopramide HCl [Reglan] 10 mg tablet 10 mg PO Q6H Qty: 60 0RF metoclopramide HCl [Reglan] 10 mg tablet 10 mg PO Q6H Qty: 60 0RF hydrocodone-acetaminophen 5-325 mg tablet 1 tab PO Q6H PRN (Reason: pain) Qty: 10 0RF Referrals: Kalie Dsouza MD [Physician] -
[2021-09-12 00:34] VITALS: BP 129/76; PULSE 75; RESP 18; O2SAT 100
== END 2021-09-12 01:12 | disposition home or self-care (01) ==
PROVIDERS: Emergency Provider Emergency Medicine
DX: S93.601A Unspecified sprain of right foot, initial encounter (principal); F17.290 Nicotine dependence, other tobacco product, uncomplicated; X58.XXXA Exposure to other specified factors, initial encounter; Y99.0 Civilian activity done for income or pay
CPT/HCPCS: 73700; 99283; 99284

== ENCOUNTER 2022-01-24 20:34 | Emergency (ER) | payer OTHER, SELFPAY ==
[2022-01-24 20:45] VITALS: BP 127/74; PULSE 104; RESP 16; TEMP 37.1; O2SAT 96; BMI 37.3
--- NOTE | 2022-01-24 22:27 | ED_ITS ---
HPI - General Adult General Chief complaint: Abdominal Pain Stated complaint: pain and swelling under left ribs Time Seen by Provider: 01/24/22 22:23 Source: patient Mode of arrival: Wheelchair History of Present Illness HPI narrative: Patient is a 26-year-old male who is here for evaluation of pain and swelling to his left upper abdomen/left lower rib area. The symptoms have been there for the past couple weeks. No skin changes over the area. It is somewhat more tender to palpation. Has had no problems with breathing. No change in bowel habits. No urinary symptoms. He states he is seen his primary doctor who told him that it was most likely a muscular issue. Symptoms have not improved so came to emergency department for evaluation. Related Data Previous Rx's Medication Instructions Recorded sucralfate 1 gram tablet (Carafate) 1 g PO QACHS #60 tabs 07/23/21 metoclopramide HCl 10 mg tablet 10 mg PO Q6H #60 tabs 08/09/21 (Reglan) metoclopramide HCl 10 mg tablet 10 mg PO Q6H #60 tabs 08/09/21 (Reglan) hydrocodone 5 mg-acetaminophen 325 1 tab PO Q6H PRN pain #10 tabs 08/15/21 mg tablet Allergies Allergy/AdvReac Type Severity Reaction Status Date / Time No Known Drug Allergies Allergy Verified 07/22/21 22:55 Review of Systems Cardiovascular Cardiovascular: Reports system reviewed and no additional complaints, except as documented Respiratory Respiratory: Reports system reviewed and no additional complaints, except as documented Gastrointestinal Gastrointestinal: Reports system reviewed and no additional complaints, except as documented Genitourinary Genitourinary: Reports system reviewed and no additional complaints, except as documented Integumentary/Breasts Skin/Breast: Reports system reviewed and no additional complaints, except as documented Hematologic/Lymphatic On Anticoagulants: No Patient History Medical History Healthy adult PUD (peptic ulcer disease) Social History Smoking Status: Current every day smoker Smoking Status: Current every day smoker tobacco type: vaping alcohol intake frequency: a few times a week Substance Use Type: does not use Exam Initial Vital Signs Initial Vital Signs: Vital Signs Temperature 98.8 F 01/24/22 20:45 Pulse Rate 104 H 01/24/22 20:45 Respiratory Rate 16 01/24/22 20:45 Blood Pressure 127/74 01/24/22 20:45 Pulse Oximetry 96 01/24/22 20:45 Oxygen Delivery Method 01/24/22 20:45 [facility] Head: normal to inspection and normocephalic Resp Effort & Inspection: normal respiratory effort Cardio Rate: regular rate GI Other: Patient does have an area of fullness to the left upper abdomen that does seem to be below the level of the anterior ribs. The fullness does feel more like it is in the subcutaneous tissue rather than the intra-abdominal cavity. Skin General: no rashes or lesions noted Neuro General: patient alert and patient awake Course Orders Ordered: ED Orders 01/24/22 22:28 CT abdomen pelvis w con Stat 01/24/22 22:32 Basic Metabolic Panel Stat Complete Blood Count AUTO DIFF Stat Vital Signs Vital signs: Vital Signs - 8 hr 01/24/22 20:45 01/24/22 23:52 Temperature 98.8 F Pulse Rate 104 H 78 Respiratory Rate 16 16 Blood Pressure 127/74 125/71 Pulse Oximetry 96 98 Oxygen Delivery Method Room Air Room Air Medical Decision Making Lab Data Lab results reviewed: Yes I reviewed the patient's lab results. Result diagrams: 01/24/22 22:32 01/24/22 22:32 Labs: Lab Results 01/24/22 01/24/22 Range/Units 22:32 22:32 WBC 10.9 (4.5-11.0) X10^3/uL RBC 5.19 (4.5-5.9) X10^6/uL Hgb 15.2 (13.5-17.5) g/dL Hct 43.8 (41-53) % MCV 84.4 (80-100) fL MCH 29.3 (26-34) PG MCHC 34.7 (30-36) % RDW 12.7 (11.6-14.8) % Plt Count 361 (150-400) X10^3/uL Neut % (Auto) 57.1 (50-75) % Lymph % (Auto) 30.5 (25-40) % Sawyer % (Auto) 10.0 (3-14) % Eos % (Auto) 1.7 L (2-4) % Baso % (Auto) 0.7 (0-2) % Neut # (Auto) 6200 (5296-1006) /uL Lymph # (Auto) 3300 (9634-3524) /uL Sawyer # (Auto) 1100 H (0-900) /uL Eos # (Auto) 200 (0-450) /uL Baso # (Auto) 100 (0-100) /uL Sodium 141 (137-145) mmol/L Potassium 4.2 (3.4-5.1) mmol/L Chloride 103 (98-107) mmol/L Carbon Dioxide 30 (22-32) mmol/L BUN 15 (9-20) mg/dL Creatinine 1.06 (0.66-1.25) mg/dL Estimated GFR > 60 (>60) mL/min BUN/Creatinine Ratio 14.2 (6-22) Glucose 101 H (70-100) mg/dL Calcium 9.0 (8.4-10.2) mg/dL Imaging Data CT scan - abdomen/pelvis: Radiologist's Impression: [address] [address] [address] Scan Report Signed Patient: Pedro Williamson MR#: [id number] : 1995 Acct:[id number] Age/Sex: 26 / M Date of Service: 01/24/22 Loc: ED Accession Number: [id number] ?? Procedure: CT abdomen pelvis w con Ordering Provider: Abdirahman Carcamo D.O. PROCEDURE:? CT ABDOMEN PELVIS W CON ? INDICATIONS:? Left upper quadrant pain with small mass ? TECHNIQUE:? After the administration of IV contrast, axial sections were acquired from the lung bases to the pubic symphysis.? Coronal and sagittal reformats were performed.? For radiation dose reduction, the following was used:? automated exposure control, adjustment of mA and/or kV according to patient size. ? COMPARISON:? [facility], CT, CT ANGIO ABDOMEN PELVIS, 07/23/2021, 1:00. ? FINDINGS:? Image quality:? Excellent.? ? Lung bases:? There is a small 0.3 cm right middle lobe nodule along the right major fissure on series 6, image 4 which appears new compared to the prior study.? ? Heart:? Heart is normal in size. ? ? ABDOMEN: Liver:? No mass lesion. Gallbladder:? Within normal limits without calcified gallstones.? ? Biliary ducts:? No biliary ductal dilatation.? ? Pancreas:? Unremarkable.? ? Spleen:? Normal in size.? ? Adrenal Glands:? No adrenal nodules.? ? Kidneys and Ureters:? No hydronephrosis.? ? ? Stomach and Bowel:? Stomach, small bowel loops, and colon are normal in caliber and wall thickness.? No pericecal inflammatory changes to suggest appendicitis.? There are few colonic diverticula without acute diverticulitis.? Peritoneum:? No abnormal intraperitoneal fluid.? No free air.? ? Ventral Wall: ? No hernia.? No discrete abdominal wall mass identified.? Abdominal Nodes:? No retroperitoneal or mesenteric adenopathy by size criteria.? Vessels:? Aorta and inferior vena cava are normal in size.? ? PELVIS: Pelvic Organs:? Unremarkable.? ? Bladder:? Unremarkable.? ? Pelvic Nodes: No enlarged lymph nodes.? Miscellaneous: No inguinal hernias are seen. ? ? ? Bones:? Visualized osseous structures demonstrate no suspicious focal lesions. ? IMPRESSION:? ? 1.? No acute intra-abdominal abnormality to correlate with patient's left upper quadrant pain.? No discrete mass identified.? ? ? Dictated by: Aftab Anna M.D. on 01/24/2022 at 23:25 ? ? Approved by: Aftab Anna M.D. on 01/24/2022 at 23:29?? MDM Narrative Medical decision making narrative: Does have an area of fullness in the left upper abdomen that seems to be in the subcutaneous region. There are no skin changes over the area. Lungs are clear. CT scan of the abdomen shows no acute pathology. This very well could be muscular. Also for the patient that could be lipoma although I am less co nvinced of this particular diagnosis based on his exam. There is nothing surgical today. Nothing requiring any antibiotics. Unsure the exact etiology and I did discuss this with the patient. He will contact his primary doctor for follow-up. Is given return precautions. He expressed understanding and agreement. Discharge Plan Departure Patient Disposition: Home Clinical Impression: Abdominal pain Instructions: DI for Abdominal Pain-Adult Activity Restrictions/Additional Instructions: The CT scan today does not show any signs acute surgical issues or infections. I recommend that you contact your primary doctor for a follow-up. Return to the emergency department for any new or worsening symptoms. Prescriptions: No Action sucralfate [Carafate] 1 gram tablet 1 g PO QACHS Qty: 60 2RF metoclopramide HCl [Reglan] 10 mg tablet 10 mg PO Q6H Qty: 60 0RF metoclopramide HCl [Reglan] 10 mg tablet 10 mg PO Q6H Qty: 60 0RF hydrocodone-acetaminophen 5-325 mg tablet 1 tab PO Q6H PRN (Reason: pain) Qty: 10 0RF Visit Report Forms: Patient Portal/API
--- NOTE | 2022-01-24 22:28 | DI.CT.S_ITS ---
PROCEDURE: CT ABDOMEN PELVIS W CON INDICATIONS: Left upper quadrant pain with small mass TECHNIQUE: After the administration of IV contrast, axial sections were acquired from the lung bases to the pubic symphysis. Coronal and sagittal reformats were performed. For radiation dose reduction, the following was used: automated exposure control, adjustment of mA and/or kV according to patient size. COMPARISON: [facility], CT, CT ANGIO ABDOMEN PELVIS, 07/23/2021, 1:00. FINDINGS: Image quality: Excellent. Lung bases: There is a small 0.3 cm right middle lobe nodule along the right major fissure on series 6, image 4 which appears new compared to the prior study. Heart: Heart is normal in size. ABDOMEN: Liver: No mass lesion. Gallbladder: Within normal limits without calcified gallstones. Biliary ducts: No biliary ductal dilatation. Pancreas: Unremarkable. Spleen: Normal in size. Adrenal Glands: No adrenal nodules. Kidneys and Ureters: No hydronephrosis. Stomach and Bowel: Stomach, small bowel loops, and colon are normal in caliber and wall thickness. No pericecal inflammatory changes to suggest appendicitis. There are few colonic diverticula without acute diverticulitis. Peritoneum: No abnormal intraperitoneal fluid. No free air. Ventral Wall: No hernia. No discrete abdominal wall mass identified. Abdominal Nodes: No retroperitoneal or mesenteric adenopathy by size criteria. Vessels: Aorta and inferior vena cava are normal in size. PELVIS: Pelvic Organs: Unremarkable. Bladder: Unremarkable. Pelvic Nodes: No enlarged lymph nodes. Miscellaneous: No inguinal hernias are seen. Bones: Visualized osseous structures demonstrate no suspicious focal lesions. IMPRESSION: 1. No acute intra-abdominal abnormality to correlate with patient's left upper quadrant pain. No discrete mass identified. Dictated by: Aftab Anna M.D. on 01/24/2022 at 23:25 Approved by: Aftab Anna M.D. on 01/24/2022 at 23:29
[2022-01-24 22:42] LABS: Add Manual Diff / Slide Review NO; Basophils Absolute Auto 100 /uL (0-100); Basophils Percent Auto 0.7 % (0-2); Eosinophils Absolute Auto 200 /uL (0-450); Eosinophils Percent Auto 1.7 % (2-4); Hematocrit 43.8 % (41-53); Hemoglobin 15.2 g/dL (13.5-17.5); Lymphocytes Absolute Auto 3300 /uL (1100-4500); Lymphocytes Percent Auto 30.5 % (25-40); Mean Corpuscular HGB Conc 34.7 % (30-36); Mean Corpuscular Hemoglobin 29.3 PG (26-34); Mean Corpuscular Volume 84.4 fL (80-100); Monocytes Absolute Auto 1100 /uL (0-900); Neutrophils Absolute Auto 6200 /uL (1500-7000); Neutrophils Percent Auto 57.1 % (50-75); Platelet Count 361 X10^3/uL (150-400); Red Blood Cell Count 5.19 X10^6/uL (4.5-5.9); Red Cell Distribution Width 12.7 % (11.6-14.8); White Blood Cell Count 10.9 X10^3/uL (4.5-11.0)
[2022-01-24 22:54] LABS: BUN Creatinine Ratio 14.2 (6-22); Blood Urea Nitrogen 15 mg/dL (9-20); Carbon Dioxide 30 mmol/L (22-32); Chloride 103 mmol/L (98-107); Estimated Glomerular Filt Rate > 60 mL/min (>60); Glucose 101 mg/dL (70-100); HEMOLYSIS < 15 (0-50); Potassium 4.2 mmol/L (3.4-5.1); Sodium 141 mmol/L (137-145)
[2022-01-24 23:52] VITALS: BP 125/71; PULSE 78; RESP 16; O2SAT 98
== END 2022-01-25 | disposition home or self-care (01) ==
PROVIDERS: Emergency Provider Emergency Medicine
DX: R10.12 Left upper quadrant pain (principal)
CPT/HCPCS: 36415; 74177; 80048; 85025; 99283; 99284; Q9967